=== PATIENT | female | born 1985 | race Caucasian/White ===

== ENCOUNTER 2016-12-16 20:36 | Emergency (ER) | payer OTHER ==
[~2016-12-16 20:36] MED LIST: ALLEGRA ALLERG180 M1 PO; ATA25 PO; BENADRYL ALLERG25 MG PO; CETIRIZINE10 M1 PO; CIPRO500 MG PO; CLINDAMYCIN HC300 MG PO; CLOBETASOL PROP0.05% TOP; DOCUSATE100 M1 PO; ECO81 PO; HYDRALAZINE HYD50 MG PO; HYDROXYZINE50 M1 PO; L40 PO; LEXAPRO10 MG PO; NORCO1 TA2 PO; OMEPRAZOLE DR20 M1 PO; PREDNISONE PO; PREDNISONE5 MG PO; PROAIR HFA0.09 MG/A1; SINGULAIR10 MG PO; XARELTO10 M1 PO; Xarelto PO; ZOC20 PO
[2016-12-16 21:24] LABS: microscopic required? YES; urine erythrocyte 3+ (NEGATIVE)
[2016-12-16 21:30] LABS: BASOPHIL % 0.2 % (0-2); PLATELET COUNT 344 x10^3mcL (130-400); RED CELL DISTRIBUTION WIDTH 13.5 % (11.5-14.5)
[2016-12-17 00:25] VITALS: BP 138/65
== END 2016-12-17 00:22 | disposition home or self-care (01) ==
LOC: ED 20:36
PROVIDERS: Emergency Medicine
DX: O03.9 Complete or unspecified spontaneous abortion without complication (principal); I10 Essential (primary) hypertension; J45.909 Unspecified asthma, uncomplicated
CPT/HCPCS: 36415

== ENCOUNTER 2017-05-31 22:39 | Emergency (ER) | payer OTHER ==
[2017-06-01 00:01] LABS: ALBUMIN 3.1 g/dL (3.4-5.0); ALKALINE PHOSPHATASE 109 U/L (46-116); ALT/SGPT 22 U/L (14-59); AST/SGOT 13 U/L (15-37); BILIRUBIN TOTAL 0.3 mg/dL (0.20-1.00); CALCIUM 9.1 mg/dL (8.5-10.1); CARBON DIOXIDE 29.5 mmol/L (21-32); CHLORIDE SERUM 103 mmol/L (98-107); CREATININE SERUM 0.7 mg/dL (0.6-1.0); GFR1 > 60 mL/min; GLUCOSE SERUM 119 mg/dL (74-106); LIPASE 81 IU/L (73-393); POTASSIUM SERUM 4.3 mmol/L (3.5-5.1); SODIUM SERUM 138 mmol/L (136-145); TOTAL PROTEIN, SERUM 7.8 g/dL (6.4-8.2)
[2017-06-01 00:14] LABS: UA SPECIFIC GRAVITY >=1.030 (1.005-1.035); microscopic required? YES; urine erythrocyte NEGATIVE (NEGATIVE)
[2017-06-01 00:22] LABS: BASOPHIL % 0.3 % (0-2); PLATELET COUNT 371 x10^3mcL (130-400); RED CELL DISTRIBUTION WIDTH 12.6 % (11.5-14.5)
[2017-06-01 01:00] VITALS: BP 140/65
== END 2017-06-01 01:00 | disposition home or self-care (01) ==
LOC: ED 22:39
PROVIDERS: Emergency Medicine
DX: N39.0 Urinary tract infection, site not specified (principal); J45.909 Unspecified asthma, uncomplicated; I10 Essential (primary) hypertension; Z88.0 Allergy status to penicillin; Z88.5 Allergy status to narcotic agent
CPT/HCPCS: J1885; J2405; J7030; Q0092

== ENCOUNTER 2018-01-07 01:11 | Emergency (ER) | payer OTHER ==
[~2018-01-07] VITALS: Ht 154.9 cm; Wt 131.5 kg
[2018-01-07 01:15] VITALS: Ht 154.9 cm; Wt 131.5 kg
[2018-01-07 02:29] LABS: BASOPHIL % 0.3 % (0-2); RED CELL DISTRIBUTION WIDTH 12.8 % (11.5-14.5)
[2018-01-07 02:30] LABS: CALCIUM 9.1 mg/dL (8.5-10.1); CARBON DIOXIDE 28.1 mmol/L (21-32); CHLORIDE SERUM 104 mmol/L (98-107); CREATININE SERUM 0.9 mg/dL (0.6-1.0); GFR1 > 60 mL/min; GLUCOSE SERUM 111 mg/dL (74-106); POTASSIUM SERUM 3.7 mmol/L (3.5-5.1); SODIUM SERUM 141 mmol/L (136-145)
[2018-01-07 02:32] LABS: PLATELET COUNT 439 x10^3mcL (130-400)
[2018-01-07 02:36] LABS: ALKALINE PHOSPHATASE 111 U/L (46-116); ALT/SGPT 21 U/L (14-59); AST/SGOT 17 U/L (15-37); BILIRUBIN TOTAL 0.22 mg/dL (0.20-1.00); TOTAL PROTEIN, SERUM 7.4 g/dL (6.4-8.2)
[2018-01-07 07:02] VITALS: BP 160/88
== END 2018-01-07 07:02 | disposition home or self-care (01) ==
LOC: ED 01:11
PROVIDERS: Emergency Medicine
DX: R07.2 Precordial pain (principal); I10 Essential (primary) hypertension; J45.909 Unspecified asthma, uncomplicated; Z88.0 Allergy status to penicillin; Z88.5 Allergy status to narcotic agent
CPT/HCPCS: 83880; J2270; Q0092; Q9967

== ENCOUNTER 2020-02-12 13:15 | Emergency (ER) | payer OTHER, SELFPAY ==
[~2020-02-12] VITALS: Ht 154.9 cm; Wt 131.1 kg
[2020-02-12 13:18] VITALS: Ht 154.9 cm; Wt 131.1 kg
[2020-02-12 15:04] LABS: BASOPHIL % 0.4 % (0-2); PLATELET COUNT 443 x10^3mcL (130-400); RED CELL DISTRIBUTION WIDTH 14.8 % (11.5-14.5)
[2020-02-12 15:27] LABS: UA SPECIFIC GRAVITY 1.025 (1.005-1.035); microscopic required? YES; urine erythrocyte 3+ (NEGATIVE)
[2020-02-12 16:26] VITALS: BP 151/89
== END 2020-02-12 16:26 | disposition home or self-care (01) ==
LOC: ED 13:15
PROVIDERS: Emergency Medicine
DX: O20.9 Hemorrhage in early pregnancy, unspecified (principal); I10 Essential (primary) hypertension; J45.909 Unspecified asthma, uncomplicated; Z88.5 Allergy status to narcotic agent; Z3A.01 Less than 8 weeks gestation of pregnancy; Z88.0 Allergy status to penicillin
CPT/HCPCS: Q0092